=== PATIENT | male | born 1975 ===

== ENCOUNTER 2019-02-05 07:35 | Outpatient (CLI) | payer OTHER ==
[2019-02-05] MEDS ORDERED: COZAAR100 MG PO (10:08)
== END 2019-02-05 07:41 | disposition home or self-care (01) ==
LOC: RAD 07:35
DX: D21.0 Benign neoplasm of connective and other soft tissue of head, face and neck (principal); I10 Essential (primary) hypertension

== ENCOUNTER 2019-02-12 06:00 | Day surgery (SDC) | payer OTHER ==
[~2019-02-12 06:00] MED LIST: COZAAR100 MG PO
== END 2019-02-12 12:00 | disposition home or self-care (01) ==
LOC: CIR.AMB 06:00
DX: D21.6 Benign neoplasm of connective and other soft tissue of trunk, unspecified (principal)